=== PATIENT | female | born 2000 ===

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

== ENCOUNTER 2018-04-11 19:22 | Emergency (ER) | payer SELFPAY ==
[2018-04-11 19:22] VITALS: BMI 33.6
[2018-04-11 19:33] VITALS: O2SAT 100
[2018-04-11] MEDS ORDERED: Sodium Chloride 0.9% 1,000 ML IV STA (20:29)
--- NOTE | 2018-04-11 20:48 | ED PDOC ---
HPI: Abdomen Time Seen by Provider: 04/11/18 20:19 Chief Complaint (Nursing): Abdominal Pain Chief Complaint (Provider): Abdominal Pain History Per: Patient History/Exam Limitations: no limitations Onset/Duration Of Symptoms: Days (x 1) Current Symptoms Are (Timing): Still Present Location Of Pain/Discomfort: LLQ Quality Of Discomfort: "Pain" Associated Symptoms: Fever, Chills, Nausea, Vomiting, Loss Of Appetite Additional Complaint(s): 17 year old female with a history of depression presents to the ED with abdominal pain, fever, nausea and vomiting since late last night, worsening today. Abdominal pain is mostly on left side. Patient has not been able tolerate eating anything today and has expelled yellow vomit over 10 times with no blood. Her last BM was today and soft. She also complains of chills today. Denies urinary symptoms, vaginal bleeding and vaginal discharge. PMD: Dr. Zion Becerra Past Medical History Reviewed: Historical Data, Nursing Documentation, Vital Signs Vital Signs: Last Vital Signs Temp 98.6 F 04/12/18 02:55 Pulse 97 H 04/12/18 02:55 Resp 18 04/12/18 02:55 BP 116/82 04/12/18 02:55 Pulse Ox 100 04/12/18 02:55 - Medical History PMH: Anxiety, Depression, Migraine Denies: HIV, Chronic Kidney Disease - Surgical History Surgical History: Tonsillectomy - Family History Family History: States: Unknown Family Hx - Home Medications Home Medications: Ambulatory Orders Medication Instructions Recorded Nitrofurantoin Macrocrystals 100 mg PO BID #14 cap 12/18/17 [Macrobid] Phenazopyridine HCl [Pyridium] 100 mg PO TID #6 tab 12/18/17 Dicyclomine [Bentyl] 20 mg PO BID #30 tab 04/12/18 Ondansetron ODT [Zofran ODT] 4 mg PO Q8 PRN #12 odt 04/12/18 - Allergies Allergies/Adverse Reactions: Allergies Allergy/AdvReac Type Severity Reaction Status Date / Time No Known Allergies Allergy Verified 11/24/17 18:27 Review of Systems ROS Statement: Except As Marked, All Systems Reviewed And Found Negative Constitutional: Positive for: Fever, Chills Gastrointestinal: Positive for: Nausea, Vomiting, Abdominal Pain Genitourinary Female: Negative for: Dysuria, Frequency, Incontinence, Hematuria , Vaginal Discharge, Vaginal Bleeding Physical Exam - Reviewed Nursing Documentation Reviewed: Yes Vital Signs Reviewed: Yes - Physical Exam Appears: Positive for: Uncomfortable (and febrile ) Head Exam: Positive for: ATRAUMATIC, NORMAL INSPECTION, NORMOCEPHALIC Skin: Positive for: Normal Color, Warm, Dry Eye Exam: Positive for: EOMI, Normal appearance, PERRL Neck: Positive for: Normal, Painless ROM, Supple Cardiovascular/Chest: Positive for: Tachycardia (with regular rhythm) Respiratory: Positive for: Normal Breath Sounds. Negative for: Respiratory Distress Gastrointestinal/Abdominal: Positive for: Soft, Tenderness (LLQ tenderness) Extremity: Positive for: Normal ROM (x 4). Negative for: Deformity Neurologic/Psych: Positive for: Alert, Oriented (x 3). Negative for: Motor/ Sensory Deficits - Laboratory Results Result Diagrams: 04/11/18 21:05 04/11/18 21:05 - ECG O2 Sat by Pulse Oximetry: 100 (RA) Pulse Ox Interpretation: Normal Medical Decision Making Medical Decision Makin:28 A & P History of depression presenting with abdominal pain, fever, nausea and vomiting --patient is febrile with tachycardia --Potential sources include colitis vs diverticulitis vs pyelonephritis vs gastroenerteriitis --Will evaluated for sepsis --VBG --CT Abd & pelvis --EKG --CMP --Lipase --Urine preg --Urine dip --CBC --NS IV --Reglan 10 mg IVPB --Toradol 30 mg IVP --Blood cx --urine cx --UA CT Abd & Pelvis Time: 22:53 FINDINGS: Lung bases: Unremarkable. No mass. No consolidation. ABDOMEN: Liver: Unremarkable. No mass. Gallbladder and bile ducts: Unremarkable. No calcified stones. No ductal dilation. Pancreas: Unremarkable. No ductal dilation. Spleen: Unremarkable. No splenomegaly. Adrenals: Unremarkable. No mass. Kidneys and ureters: Unremarkable. No solid mass. No hydronephrosis. Stomach and bowel: Unremarkable. No dilated bowel loops. PELVIS: Appendix: No findings to suggest acute appendicitis. Bladder: Unremarkable. Reproductive: 4.6 cm left adnexal cystic structure. Correlate with pelvic ultrasound. ABDOMEN and PELVIS: Intraperitoneal space: Unremarkable. No free air. No significant fluid collection. Bones/joints: No acute fracture. No dislocation. Soft tissues: Scarring is noted in the subcutaneous tissues of the abdominal wall. Vasculature: Unremarkable. No abdominal aortic aneurysm. Lymph nodes: Unremarkable. No enlarged lymph nodes. IMPRESSION: 4.6 cm left adnexal cystic structure. Correlate with pelvic ultrasound. No imaging features to suggest acute appendicitis at this time. EXAM: US Pelvis, Transvaginal US Duplex Arterial/Venous of the Pelvis, Complete CLINICAL HISTORY: 17 years old, female; Pain and abnormal findings; Abnormal imaging test; Pelvic pain; Additional info: L adnexal cyst on CT TECHNIQUE: Real-time transvaginal pelvic ultrasound (complete) with image documentation. Transvaginal imaging was used for better evaluation of the endometrium and adnexa. Real-time duplex ultrasound scan of the arterial and venous flow of the pelvis with color Doppler flow and spectral waveform analysis. COMPARISON: No relevant prior studies available. FINDINGS: Uterus/cervix: No myometrial mass. Endometrium: 0.3 cm in thickness. Right ovary: Small follicles. Normal flow. Left ovary: 3.5 x 3.8 x 3.9 cm anechoic lesion. Normal flow. Free fluid: No significant free fluid. IMPRESSION: 1. LEFT ovarian cyst. Thank you for allowing us to participate in the care of your patient. Dictated and Authenticated by: Coleman Ibrahim MD 04/11/2018 11:50 PM Eastern Time ([place] & [place]) 1AM --Patient states she's feeling significantly improved --Tolerating PO --Vitals improved, patient appearing comfortable, well appearing --Gave patient results of tests, advised to followup with PMD in 2 - 3 days for re-eval --Will recommend bentyl and zofran for continued nausea --Return precautions discussed ---- Scribe Attestation: Documented by Noni Pike, acting as a scribe for German Glasgow MD Provider Scribe Attestation: All medical record entries made by the Scribe were at my direction and personally dictated by me. I have reviewed the chart and agree that the record accurately reflects my personal performance of the history, physical exam, medical decision making, and the department course for this patient. I have also personally directed, reviewed, and agree with the discharge instructions and disposition. Disposition - Clinical Impression Clinical Impression: Gastroenteritis - Patient ED Disposition Is Patient to be Admitted: No - Disposition Referrals: Zion Becerra MD [Family Provider] - Disposition: Routine/Home Disposition Time: 01:00 Condition: IMPROVED Prescriptions: Dicyclomine [Bentyl] 20 mg PO BID #30 tab Ondansetron ODT [Zofran ODT] 4 mg PO Q8 PRN #12 odt PRN Reason: Nausea/Vomiting Instructions: Gastroenteritis (ED) Forms: [facility] (Citizen Of [place]) Print Language: UZBEK
[2018-04-11 21:17] LABS: VENOUS BLOOD GAS BASE EXCESS -0.2 mmol/L (0.0-2.0); VENOUS BLOOD GAS PCO2 41 mmHg (40-60); VENOUS BLOOD GAS PO2 23 mm/Hg (30-55); VENOUS BLOOD PH 7.39 (7.32-7.43)
[2018-04-11 21:22] LABS: BASO # 0.1 K/uL (0.0-0.2); BASO % 0.6 % (0.0-2.0); EOS % 0.1 % (0.0-4.0); HEMOGLOBIN 13.6 g/dL (12.0-16.0); LYMPH # 0.2 K/uL (1.0-4.3); LYMPH % 1.9 % (20.0-40.0); MEAN CELL VOLUME 84.5 fl (81.0-99.0); MEAN CORPUSCULAR HEMOGLOBIN 28.3 pg (27.0-31.0); MEAN CORPUSCULAR HGB CONC 33.5 g/dL (33.0-37.0); MEAN PLATELET VOLUME 7.7 fl (7.2-11.7); MONO # 0.3 K/uL (0.0-0.8); MONO % 3.3 % (0.0-10.0); NEUT # 9.5 K/uL (1.8-7.0); NEUT % 94.1 % (50.0-75.0); NRBC % 0.1 % (0.0-0.0); PLATELET COUNT 289 K/uL (130-400); RBC 4.82 Mil/uL (3.80-5.20); RED CELL DISTRIBUTION WIDTH 14.1 % (11.5-14.5); WHITE BLOOD COUNT 10.1 K/uL (4.8-10.8)
[2018-04-11 21:27] LABS: ALB/GLOB RATIO 1.4 (1.0-2.1); ALBUMIN 4.6 g/dL (3.5-5.0); ALT/SGPT 26 U/L (9-52); AST/SGOT 28 U/L (14-36); BLOOD UREA NITROGEN 16 mg/dl (7-17); CALCIUM 9.4 mg/dL (8.4-10.2); GFR AFRICAN-AMERICAN > 60; GFR NON-AFRICAN AMERICAN > 60; LIPASE 48 U/L (23-300)
[2018-04-11] MEDS ORDERED: Iohexol 300 100 ML IJ ONE (22:08)
[2018-04-11] MEDS ORDERED: Sodium Chloride 0.9% 50 ML IV ONE (22:09)
[2018-04-11 22:45] LABS: BANDS 3 % (0-2); BASOPHIL 1 % (0-2); HYPOCHROMIC SLIGHT; LYMPHOCYTE 5 % (20-50); MICROCYTOSIS SLIGHT; MONOCYTE 4 % (0-10); NEUTROPHIL 87 % (42-75); PLATELET ESTIMATE NORMAL (NORMAL); TOTAL CELLS COUNTED 100
[2018-04-12 01:21] VITALS: RESP 18
[2018-04-12] MEDS ORDERED: Sodium Chloride 0.9% 1,000 ML IV STA (01:22)
[2018-04-12 02:51] VITALS: BP 116/82; PULSE 97; TEMP 98.6
--- NOTE | 2018-04-12 09:09 | CARD ---
APPROVED REPORT Date of service: 04/11/2018 EKG Measurement Heart [id number] <Conclusion> Sinus tachycardia Nonspecific T wave abnormality Abnormal ECG
--- NOTE | 2018-04-12 11:15 | CT ---
Date of service: 04/11/2018 PROCEDURE: CT Abdomen and Pelvis with contrast HISTORY: Fever and vomiting, LLQ pain COMPARISON: None. TECHNIQUE: CT scan of the abdomen and pelvis was performed after administration of intravenous contrast. Oral contrast was not administered. Coronal and sagittal reformatted images were obtained. Contrast dose: 95 mL Omnipaque 300 Radiation dose: Total exam DLP = 915.35 mGy-cm. This CT exam was performed using one or more of the following dose reduction techniques: Automated exposure control, adjustment of the mA and/or kV according to patient size, and/or use of iterative reconstruction technique. FINDINGS: LOWER THORAX: The lung bases are clear. LIVER: Mild hepatomegaly and fatty liver. No gross lesion or ductal dilatation. GALLBLADDER AND BILE DUCTS: No calcified gallstones. PANCREAS: Normal in size with homogeneous enhancement. No gross lesion or ductal dilatation. SPLEEN: Normal in size and appearance. ADRENALS: No discrete nodule. KIDNEYS AND URETERS: Normal in size with homogeneous enhancement. No hydronephrosis. No solid mass. VASCULATURE: No aortic aneurysm. BOWEL: The proximal small bowel loops are normal in caliber. There are fluid-filled mid and distal small bowel loops. The colon is unremarkable. APPENDIX: Normal appendix. PERITONEUM: No free fluid. No free air. LYMPH NODES: No enlarged lymph nodes. BLADDER: Well distended and grossly normal in appearance. REPRODUCTIVE: The uterus is normal in size. There is a 5.5 x 4.8 cm septated cyst in the left ovary. BONES: No acute fracture. OTHER FINDINGS: None. IMPRESSION: 5.5 x 4.8 cm septated cyst in the left ovary. Please correlate with pelvic ultrasound for definitive characterization and evaluation for torsion. No acute abdominal or pelvic abnormality. A preliminary report was provided by [facility].
--- NOTE | 2018-04-12 12:55 | US ---
Date of service: 04/11/2018 HISTORY: L adnexal cyst on CT COMPARISON: None available. TECHNIQUE: Transvaginal FINDINGS: UTERUS: Measures 6.0 x 2.1 x 3.8 cm. Normal in size and appearance . Appearance. No fibroid or other mass lesion seen. ENDOMETRIUM: Measures 3 mm in diameter. Unremarkable. CERVIX: No cervical abnormality identified. RIGHT OVARY: Measures 2.3 x 1.4 x 2.7 cm with normal appearing physiological follicles cm. No solid mass. Normal flow. LEFT OVARY: Measures 4.5 x 4.2 x 4.4 cm. No solid mass. Normal flow. Benign appearing left ovarian cyst measuring 3.8 x 3.9 x 3.5 cm FREE FLUID: No significant free fluid noted. OTHER FINDINGS: None. IMPRESSION: Benign appearing left ovarian cyst measuring 3.8 x 3.9 x 3.5 cm
== END 2018-04-12 02:53 | disposition home or self-care (01) ==
LOC: H.ER 19:22
DX: N83.202 Unspecified ovarian cyst, left side (principal); F41.9 Anxiety disorder, unspecified; K52.9 Noninfective gastroenteritis and colitis, unspecified
CPT/HCPCS: 74177; 76830; 80053; 81025; 82803; 83690; 85025; 87040; 93005; 96374; 99284; J1885; J2765; J7030; Q9967